=== PATIENT | male | born 1940 | race Caucasian/White ===

== ENCOUNTER 2022-08-25 13:06 | Outpatient (CLI) | payer MEDICARE, OTHER, SELFPAY ==
[2022-08-25 12:29] LABS: Albumin* 4.3 g/dL (3.3-5.0)
[2022-08-25 12:30] LABS: Chloride* 103 mmol/L (96-114); Potassium* 4.4 mmol/L (3.6-5.1); Sodium* 139 mmol/L (135-149)
[2022-08-25 12:32] LABS: Bilirubin Total* 0.5 mg/dL (0.1-1.5); Carbon Dioxide* 29 mmol/L (20-32); Cholesterol* 148 mg/dL (90-199); Creatinine* 0.9 mg/dL (0.5-1.5); Estimated Glomerular Filt Rate 86 ml/min
[2022-08-25 12:33] LABS: Alanine Aminotransferase* 24 U/L (4-50); Alkaline Phosphatase* 54 U/L (40-150); Aspartate Amino Transferase* 24 U/L (12-35); Blood Urea Nitrogen* 18 mg/dL (7-30); Calcium* 9.2 mg/dL (8.4-10.6); Glucose* 100 mg/dL (60-115); HDL Cholesterol* 60 mg/dL (>=40); LDL Cholesterol Calculated 79 mg/dL (<100); Total Protein* 6.7 g/dL (6.0-8.3); Triglycerides* 46 mg/dL (40-149)
[2022-08-25 13:04] LABS: PSA Screen* 2.94 ng/mL (0.10-4.00)
== END 2022-08-25 13:07 | disposition home or self-care (01) ==
PROVIDERS: PCP Family Medicine; Visit Provider Family Medicine
DX: Z00.00 Encounter for general adult medical examination without abnormal findings (principal); E78.5 Hyperlipidemia, unspecified; Z12.5 Encounter for screening for malignant neoplasm of prostate
CPT/HCPCS: 80053; 80061; 84153

== ENCOUNTER 2022-12-11 13:17 | Outpatient (CLI) | payer MEDICARE, OTHER, SELFPAY ==
--- NOTE | 2022-12-11 13:45 | MR_ITS ---
[address] [address] Phone:?[phone] Fax:?[phone] Referring Physician Information: Morgan Landry M.D. [id number] [facility] [address] Phone:?[phone] Fax:?[phone] Patient:Suri Cooper D.O.B:?1940 Sex:?Male Phone:?[phone] [facility] MRN:?[id number] Exam Date:?12/11/2022 ? EXAM: MRI EXAMINATION OF THE LEFT KNEE CLINICAL INFORMATION: Left knee pain. No history of surgery to this area. Evaluate meniscal tear. TECHNICAL INFORMATION: Coronal PD and STIR. Axial PD and T2 fat saturation. Sagittal PD and PD fat saturation images acquired. Correlation is made with August 14, 2016. INTERPRETATION: Bones: No appreciable subchondral edema signal or cystic change. No evidence for an occult fracture, osseous contusion or stress reaction. No other abnormal bone marrow edema pattern is identified. Ligaments and tendons: The medial collateral ligament is intact, without acute sprain or tear. The iliotibial band, fibular collateral ligament, biceps femoris tendon and popliteus tendon all are intact. The anterior cruciate ligament is intact without acute sprain or tear. The posterior cruciate ligament is intact. Extensor Mechanism: The patellar and quadriceps tendons are intact. The medial and lateral retinacula are intact. Knee Joint: There is a small knee joint effusion. There is a small and slender popliteal cyst. There is no discrete loose body seen within the joint. Medial Compartment: Undersurface tearing and fraying of the body of the medial meniscus appears progressed compared to the prior exam. Undersurface tearing involving the mid and inner one third portion continues within the posterior horn of the meniscus with additional intrasubstance signal continuing further posteriorly and into the posterior root insertion. No displaced flap fragment or parameniscal cyst. There is no focal chondral defect. 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 Lateral Compartment: There is a focal appearance of fraying or shallow tear involving the inner portion of the body of the lateral meniscus. No other lateral meniscal tear. No displaced flap fragment or parameniscal cyst. There is no focal chondral defect. No other significant changes of chondromalacia. Patellofemoral articulation: There is no focal chondral defect. No other significant chondromalacia. CONCLUSION: 1. Undersurface tearing and fraying involving the body and into the posterior horn medial meniscus. Intrasubstance signal continues further posteriorly and into the posterior root insertion, without root avulsion injury. Findings appear progressed. 2. 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 3. Focal fraying or shallow tear involves the inner portion of the body of the lateral meniscus appearing to represent a new finding. 4. The cruciate ligament are intact. No other residua of a ligament injury involving the knee. 5. There is a small knee joint effusion and popliteal cyst. KES Electronically signed on 12/11/2022 4:37:00 PM by Terry Falk M.D.
== END 2022-12-11 13:18 | disposition home or self-care (01) ==
LOC: MRI 13:18
PROVIDERS: PCP Family Medicine; Visit Provider Orthopaedic Surgery
DX: M25.562 Pain in left knee (principal); M23.222 Derangement of posterior horn of medial meniscus due to old tear or injury, left knee; M94.262 Chondromalacia, left knee; M25.462 Effusion, left knee; M71.22 Synovial cyst of popliteal space [Baker], left knee
CPT/HCPCS: 73721

== ENCOUNTER 2022-12-21 15:56 | Outpatient (CLI) | payer MEDICARE, OTHER, SELFPAY | END 2022-12-21 15:57 | disposition home or self-care (01) | PROVIDERS: PCP Family Medicine; Visit Provider Family Medicine | DX: I10 Essential (primary) hypertension (principal); E78.5 Hyperlipidemia, unspecified | CPT/HCPCS: 80048 ==

== ENCOUNTER 2022-12-26 06:14 | Day surgery (SDC) | payer MEDICARE, OTHER, SELFPAY ==
[2022-12-26] VITALS (10 sets, daily range): BP systolic 109–148; BP diastolic 55–82; PULSE 55–82; RESP 16–22; TEMP 36.2–37.2; O2SAT 94–97; BMI 25.4
[2022-12-26] MEDS: LACTATED RINGERS 1000 ML 1,000 ML 100 ML IV (07:00)
[2022-12-26] MEDS: SODIUM CHLORIDE 0.9 % (FLUSH) 10 ML SYRINGE IVF (07:06)
--- NOTE | 2022-12-26 07:13 | W.ANESCHARGE ---
Anesthesia Charges Start Date/Time Anesthesia Start Date: 12/26/22 Anesthesia Start Time: 07:21 Stop Date/Time Anesthesia Stop Date: 12/26/22 Anesthesia Stop Time: 08:35 Summary Extremes of Age - Over 70 or under 1: MDA
[2022-12-26] MEDS: CEFAZOLIN 2 GM INJ IVP (07:35)
[2022-12-26] MEDS: BUPIVACAINE 0.25% 30 ML INJECTION (08:20)
--- NOTE | 2022-12-26 08:24 | P.ORPRC_ITS ---
Procedure Note Date of procedure: 12/26/22 Procedure: PREOPERATIVE DIAGNOSIS: Left knee medial meniscus tear POSTOPERATIVE DIAGNOSIS: Left knee medial meniscus tear NAME OF OPERATION: Left knee arthroscopic partial medial meniscectomy SURGEON: Morgan Landry MD EXECUTIVE PASTRY CHEF: Lucas Guzman PA-C ANESTHESIA: Spinal ESTIMATED BLOOD LOSS: 0 mL COMPLICATIONS: None SPECIMENS: None DRAINS: None PREOPERATIVE ANTIBIOTICS: Ancef 2 gram INDICATIONS: The patient is a 82-year-old with a history of left knee medial pain. MRI scan is consistent with a medial meniscus tear. Despite appropriate nonoperative management, including activity modification, antiinflammatories, [id number] pain medication, bracing, physical therapy, and injections they continue to have pain and disability. Operative intervention was offered. The risks, benefits and expected outcomes were discussed in detail. These included but were not limited to: Infection, bleeding, injury to blood vessel or nerve, venous thromboembolism. All questions were answered to their satisfaction. PROCEDURE: Spinal anesthesia was administered. The patient was placed supine on the operating room table. The left lower extremity was prepped and draped in the usual sterile fashion. The limb was exsanguinated with the Curtis bandage. The pneumatic tourniquet was inflated to 300 mmHg. A standard anterolateral portal was established. The arthroscope was introduced. The working portal was established anteromedially. Diagnostic arthroscopy was performed with findings as follows: The suprapatellar pouch is normal. Articular surface on the patella shows diffuse grade 1/2 change. Articular surface on the trochlea shows diffuse grade 1/2 change. The medial gutter is normal. The medial compartment shows diffuse grade 1/2 change on both sides of the joint. The medial meniscus has a degenerative tear of the posterior horn, into the midbody. This primarily consists of an undersurface horizontal cleavage tear. The notch shows the ACL to be intact. The lateral compartment shows normal articular cartilage on the lateral femoral condyle and lateral tibial plateau. The lateral meniscus is normal. The lateral gutter is normal. The posterior horn of the medial meniscus was debrided to a stable base using a combination of rigo through both portals. Arthroscopic instruments were removed, the portal sites were Steri-Stripped closed, the knee was infiltrated with 30 mL of 0.25% Marcaine without epinephrine. A dry dressing was applied, the tourniquet was released. Sponge and needle counts were correct x 2. The patient tolerated the procedure well. There were no apparent complications. They were carefully transferred to the hospital bed and taken to the postanesthesia care unit in satisfactory condition. PLAN: The patient will be discharged to home. They may weightbear as tolerates. Range of motion will be unrestricted. They will follow up in the office next week for a wound check.
--- NOTE | 2022-12-26 08:38 | W.ANESCHARGE ---
Anesthesia Charges Start Date/Time Anesthesia Start Date: 12/26/22 Anesthesia Start Time: 07:21 Stop Date/Time Anesthesia Stop Date: 12/26/22 Anesthesia Stop Time: 08:35
--- NOTE | 2022-12-26 10:00 | SUR.PHASEII ---
tried to urinate, did not feel urge. gave him the option to stay until he voided. he prefeered to go home. instructed him to monitor himself, call if no void by afternoon, or if he becomes uncomfortable. verified plan with anesthesia
--- NOTE | 2022-12-26 10:25 | REH.PT ---
Pt provided with a donated 2ww that was adjusted to proper fit. No Charge
== END 2022-12-26 10:03 | disposition home or self-care (01) ==
PROVIDERS: PCP Family Medicine; Visit Provider Orthopaedic Surgery
PROC: (CPT 29870; principal; 2022-12-26 07:30)
DX: M23.252 Derangement of posterior horn of lateral meniscus due to old tear or injury, left knee (principal)
CPT/HCPCS: 29881; 01400; 99100; J0690; J1100; J2250; J2400; J2405; J2704; J3010; J3490; J7120

== ENCOUNTER 2023-11-28 10:03 | Outpatient (CLI) | payer MEDICARE, OTHER, SELFPAY | END 2023-11-28 10:04 | disposition home or self-care (01) | LOC: NFLDREF 14:03 | PROVIDERS: PCP Family Medicine; Referring Provider Family Medicine; Visit Provider Family Medicine | DX: N40.0 Benign prostatic hyperplasia without lower urinary tract symptoms (principal); E78.5 Hyperlipidemia, unspecified; I10 Essential (primary) hypertension | CPT/HCPCS: 80053; 80061; G0103 ==

== ENCOUNTER 2025-01-22 13:25 | Outpatient (CLI) | payer MEDICARE, OTHER, SELFPAY | END 2025-01-22 13:26 | disposition home or self-care (01) | LOC: NFLDREF 01-28 03:47 | PROVIDERS: PCP Family Medicine; Referring Provider Family Medicine; Visit Provider Family Medicine | DX: E78.5 Hyperlipidemia, unspecified (principal); I10 Essential (primary) hypertension; N40.0 Benign prostatic hyperplasia without lower urinary tract symptoms; Z12.5 Encounter for screening for malignant neoplasm of prostate | CPT/HCPCS: 80053; 80061; G0103 ==